=== PATIENT | female | born 1975 | race Two or more races ===

== ENCOUNTER 2017-10-25 15:56 | Emergency (ER) | payer OTHER ==
[~2017-10-25] VITALS: Ht 152.4 cm; Wt 96.6 kg
[~2017-10-25 15:56] MED LIST: MUCINEX600 MG PO; PRILOSEC20 MG PO; ZANTAC300 MG PO; ZOFRAN ODT8 MG/UDTAB PO
[2017-10-25] MEDS ORDERED: LOSARTAN POTASS25 MG (16:19)
[2017-10-25] MEDS ORDERED: SYNTHROID50 MCG (16:19)
== END 2017-10-25 16:44 | disposition home or self-care (01) ==
LOC: ER 15:56
DX: B37.3 Candidiasis of vulva and vagina (principal)

== ENCOUNTER 2018-05-14 04:58 | Emergency (ER) | payer OTHER ==
[~2018-05-14] VITALS: Ht 165.1 cm; Wt 88.5 kg
[~2018-05-14 04:58] MED LIST changes: +LOSARTAN POTASS25 MG; +SYNTHROID50 MCG
[2018-05-14] MEDS ORDERED: NEXIUM 24HR20 MG (05:48)
[2018-05-14] MEDS ORDERED: NASONEX17 GM TOP (11:42)
== END 2018-05-14 11:45 | disposition home or self-care (01) ==
LOC: ER 04:58
DX: R09.81 Nasal congestion (principal)

== ENCOUNTER 2019-04-05 18:57 | Emergency (ER) | payer OTHER ==
[~2019-04-05] VITALS: Ht 170.2 cm; Wt 90.7 kg
[~2019-04-05 18:57] MED LIST changes: +NASONEX17 GM TOP; +NEXIUM 24HR20 MG
== END 2019-04-05 21:21 | disposition home or self-care (01) ==
LOC: ER 18:57
DX: K29.00 Acute gastritis without bleeding (principal); R11.11 Vomiting without nausea

== ENCOUNTER 2023-07-05 01:20 | Emergency (ER) | payer OTHER ==
[~2023-07-05] VITALS: Ht 167.6 cm; Wt 94.8 kg
[2023-07-05] MEDS ORDERED: ALCLOMETASONE D15 GM TP (02:10)
[2023-07-05] MEDS ORDERED: MEDROLPACK PO (04:59)
[2023-07-05] MEDS ORDERED: DICLOFENAC POTA50 MG PO (04:59)
[2023-07-05] MEDS ORDERED: NORFLEX100MG PO (04:59)
== END 2023-07-05 05:06 | disposition home or self-care (01) ==
LOC: ER 01:20
DX: M54.30 Sciatica, unspecified side (principal); M54.50 Low back pain, unspecified

== ENCOUNTER 2023-08-09 21:28 | Emergency (ER) | payer OTHER ==
[~2023-08-09] VITALS: Ht 167.6 cm; Wt 92.1 kg
[~2023-08-09 21:28] MED LIST changes: +ALCLOMETASONE D15 GM TP; +DICLOFENAC POTA50 MG PO; +MEDROLPACK PO; +NORFLEX100MG PO
== END 2023-08-10 04:44 | disposition home or self-care (01) ==
LOC: ER 21:29
DX: M79.672 Pain in left foot (principal); Z88.2 Allergy status to sulfonamides; Z91.018 Allergy to other foods

== ENCOUNTER 2025-06-06 23:06 | Inpatient (IN) | payer OTHER ==
[~2025-06-06] VITALS: Ht 167.6 cm; Wt 249.9 kg
[~2025-06-06 23:06] MED LIST changes: +ATENOLOL25 MG PO; +DICLOFENAC SOD100 GM TOP; +DICLOFENAC SODI50 MG PO; +DICY20TA PO; +IRBESARTAN75 MG PO; +PREVACID15 MG PO; +SYNTHROID50 MCG PO
--- NOTE | 2025-06-06 23:39 | NUR ---
PACIENTE ALERTA Y ORIENTADA X3. REFIERE VENIR POR DOLOR ABDOMINAL DESDE NATA EN LA TARDE. REFIERE NO VOMITOS NI DIARREA. SE ESTIMAN VITALES Y SE UBICA.
[2025-06-07] MEDS ORDERED: ONDANSETRON HCL 2 MG/ML VIAL IV ONE (00:15)
[2025-06-07] MEDS ORDERED: FAMOtidine 10 MG/ML (4ML VIAL) IV PUSH ONE (00:30)
[2025-06-07] MEDS ORDERED: 0.9 % SODIUM CHLORIDE 1,000 ML IV SCH ×2 (00:30→10:45)
[2025-06-07] MEDS ORDERED: KETOROLAC TROMETHAMINE 15 MG VIAL IU ONE (00:30)
[2025-06-07] MEDS ORDERED: FAMOTIDINE/PF 20 MG/2 ML VIAL ONE ×2 (00:35→12:26)
[2025-06-07] MEDS ORDERED: ONDANSETRON HCL 2 MG/ML VIAL ONE ×2 (00:35→18:24)
[2025-06-07] MEDS ORDERED: KETOROLAC TROMETHAMINE 30 MG VIAL ONE (00:35)
--- NOTE | 2025-06-07 01:14 | NUR ---
PTE. EVALUADO POR DR. ZAMBRANO, SE SUSHILA MUESTRAS DE JAYDE BAJO MEDIDAS ASEPTICAS, MEDICACION ADMINISTRADA Y ORIENTACION OFRECIDA SOBRE PROCEDIMIENTOS REALIZADOS Y PROCESO DE RE-EVALUACION MEDICA. CLIENTE ALERTA Y ORIENTADO MARIAM INTERVENCION POOR PERSONAL RN.
[2025-06-07 01:26] LABS: BASO % 0.6 % (0.1-1.2); EOS # 0.10 (0.04-0.54); EOS % 0.9 % (0.7-7.0); LYMPH # 2.42 (1.18-3.74); LYMPH % 21.0 % (19.3-53.1); MEAN PLATELET VOLUME 9.00 fl (9.4-12.4); MONO # 0.81 (0.24-0.82); MONO % 7.0 % (4.7-12.5); NEUT # 8.07 (1.56-6.13); NEUT % 70.2 % (34.0-71.1); RED CELL DISTRIBUTION WIDTH 14.7 % (11.6-14.4)
[2025-06-07 02:13] LABS: INR < 0.93
[2025-06-07 02:22] LABS: ALT/SGPT 16 U/L (12-78); AST/SGOT 11 U/L (15-37); BILIRUBIN TOTAL 0.24 mg/dL (0.3-1.2); BUN CREA RATIO 12 (7.0-25.0); CREATININE SERUM 1.06 mg/dL (0.55-1.02); GFR 55.33; GLOBULINA 4.4 G/DL (2.4-3.5); GLUCOSE FASTING 111 mg/dL (65-100); OSMOLALITY SERUM 284 MOSM/KG (275-295)
[2025-06-07 02:23] LABS: HCG QUANTITATIVE < 1 mUI/mL (1-3)
[2025-06-07 04:16] LABS: URINE APPEARANCE Clear; URINE BILIRRUBIN Negative (NEGATIVE); URINE BLOOD Moderate; URINE COLOR Yellow; URINE GLUCOSE Negative (NEGATIVE); URINE KETONE Negative (NEGATIVE); URINE LEUKOCYTE Negative; URINE NITRATE Negative; URINE PROTEIN Negative (NEGATIVE); URINE UROBILINOGEN 0.2 E.U./dl
[2025-06-07 04:19] LABS: URINE BACTERIA 139.1 uL (0.0-1933); URINE EPITHELIAL CELLS 2.7 uL (0.0-38.8); URINE RBC 9.9 uL (0.0-20.8); URINE WBC 2.7 uL (0.0-23.2)
[2025-06-07 04:28] LABS: URINE CAST 0.00 uL (0.0-1.40)
[2025-06-07] MEDS ORDERED: PIPERACILLIN/TAZOBACTAM SODIUM 3.375 GM VIAL IV ONE ×2 (08:15→08:17)
--- NOTE | 2025-06-07 08:41 | NUR ---
PACIENTE ALERTA Y ORIENTADA X3 EN CAMA A NIVEL DE PISO JUNTO CON BARRANDAS ELEVADAS. CANALIZADA CON #18 EN RT ARM, PATENTE, HESHAM DE EDEMA Y ERITEMA BAJANDO 0.9NSS A 1215ML/HR. PACIENTE PENDIENTE A RE EVALUACION MEDICA.
[2025-06-07] MEDS ORDERED: FAMOTIDINE/PF 20 MG in 0.9 % SODIUM CHLORIDE 8 ML IV PUSH SCH (10:34)
[2025-06-07] MEDS ORDERED: ATENOLOL 25 MG TABLET PO SCH (10:35)
[2025-06-07] MEDS ORDERED: IRBESARTAN 150 MG TABLET PO SCH (10:35)
[2025-06-07] MEDS ORDERED: ACETAMINOPHEN 500 MG GEL..CAP PO PRN (10:45)
[2025-06-07] MEDS ORDERED: ONDANSETRON HCL 4 MG in 0.9 % SODIUM CHLORIDE 50 ML IV PRN (10:45)
[2025-06-07 22:38] VITALS: BP 132/79; O2SAT 97
[2025-06-07 23:54] VITALS: BP 136/82; O2SAT 97
[2025-06-08] MEDS ORDERED: LEVOTHYROXINE SODIUM 50 MCG TABLET PO SCH (06:00)
[2025-06-08 11:50] LABS: BASO % 0.4 % (0.1-1.2); EOS # 0.01 (0.04-0.54); EOS % 0.1 % (0.7-7.0); LYMPH # 2.10 (1.18-3.74); LYMPH % 15.5 % (19.3-53.1); MEAN PLATELET VOLUME 9.50 fl (9.4-12.4); MONO # 0.65 (0.24-0.82); MONO % 4.8 % (4.7-12.5); NEUT # 10.67 (1.56-6.13); NEUT % 78.7 % (34.0-71.1); RED CELL DISTRIBUTION WIDTH 14.7 % (11.6-14.4)
[2025-06-08] MEDS ORDERED: AMOX-CLAV 875-1 EACH PO (11:55)
[2025-06-08] MEDS ORDERED: LEVSIN/SL0.125 MG SL (11:56)
[2025-06-08] MEDS ORDERED: NAPR500T14 PO (11:57)
[2025-06-08] MEDS ORDERED: CYCLOBENZAPRINE10 MG PO (11:57)
[2025-06-08 12:37] LABS: ALT/SGPT 15.0 U/L (12-78); AST/SGOT 20.0 U/L (15-37); BILIRUBIN TOTAL 0.42 mg/dL (0.3-1.2); BUN CREA RATIO 9.0 (7.0-25.0); CREATININE SERUM 1.16 mg/dL (0.55-1.02); GFR 49.86; GLOBULINA 3.7 G/DL (2.4-3.5); GLUCOSE FASTING 142.0 mg/dL (65-100); OSMOLALITY SERUM 285.0 MOSM/KG (275-295)
== END 2025-06-08 12:30 | disposition home or self-care (01) | DRG 399 ==
LOC: ER 23:07 → SEC-K 06-07 11:27 → O/R 06-07 14:18 → SURH 06-07 18:33
PROVIDERS: General Practice; Student in an Organized Health Care Education/Training Program; ADMIT Internal Medicine; ATTEND Internal Medicine
PROC: BW21YZZ Computerized Tomography (CT Scan) of Abdomen and Pelvis using Other Contrast (ICD-10-PCS; 2025-06-07)
PROC: 0DTJ4ZZ Resection of Appendix, Percutaneous Endoscopic Approach (ICD-10-PCS; principal; 2025-06-07 15:30)
DX: K35.890 Other acute appendicitis without perforation or gangrene (principal)